=== PATIENT | male | born 1970 | race Caucasian/White ===

== ENCOUNTER 2024-06-05 18:13 | Emergency (ER) | payer OTHER, SELFPAY ==
[2024-06-05 18:36] VITALS: BP 129/85
--- NOTE | 2024-06-05 19:09 | ED.SKININJ ---
HPI-Injury
General
Chief Complaint: Bite
Source: patient
Time Seen by Provider: 06/05/24 18:51
History of Present Illness-Injury
Initial Injury comments:
54-year-old male presenting to the emergency department for evaluation after he was bit on his right hand by family dog. Dog is up-to-date on vaccinations. Patient reports his tetanus vaccine is up-to-date. He is right-hand dominant. No other
injuries were sustained.
Past History
Past History
ED Past Medical History: None
ED Past Surgical History: Orthopedic
Social History
Tobacco: Non-smoker
Alcohol: None
Drug: None
Personal:
Living: with family
Employment: Employed
Review of Systems
Review of Systems
All Other Systems: ROS reviewed and negative except as documented in HPI and ROS
Phy Exam
Physical Exam
Physical Exam:
GENERAL: Alert , in no apparent distress
EYE: conjunctiva clear
Head: Normocephalic atraumatic
NECK: Supple,
ENT: mmm.
LUNGS: no acute respiratory distress
NEUROLOGICAL: Alert and oriented
SKIN: Warm and dry, V-shaped 1-1/2 cm laceration to the right interdigital webbing space between the thumb and the index finger without any active bleeding. Patient allows for full range of motion of all digits and has intact and equal sensation
throughout.
MUSCULOSKELETAL: well perfused.
PSYCH: Normal and appropriate interaction.
Scores
Heart Failure Risk
Heart Failure Risk Score: Not Applicable
Heart Score for Chest Pain Patients
STEMI patient?: Not applicable
Withdrawal Assessment of Alcohol
Withdrawal Assessment Completed?: Not applicable
Course
Orders/Labs/Results
Orders:
Orders
06/05/24 19:10
Amoxicillin 875 mg/Clav 125 mg [Augmentin 875 mg/125 mg] 1 tablet PO NOW STA
Vital Signs
Initial and Last Documented VS:
Initial Vital Signs
Temp Pulse Resp BP Pulse Ox
98.1 F 79 16 129/85 97
06/05/24 18:36 06/05/24 18:36 06/05/24 18:36 06/05/24 18:36 06/05/24 18:36
Last Documented Vital Signs
Temp Pulse Resp BP Pulse Ox
98.1 F 86 19 137/90 97
06/05/24 18:36 06/05/24 19:33 06/05/24 19:33 06/05/24 19:33 06/05/24 18:36
Procedures
Laceration Closure
Right Hand:
Status of Wound: clean
Size of Wound in cm: 1.5
Description of Wound Edges: sharp
Preparation: cleaned with saline and cleaned with Betadine
Revision/Debridement: routine- no revision
Type of Closure: single layer closure
Skin Closure Material: 5-0 nylon
Number of sutures: 1
Additional information:
The point of the V-shaped laceration was reapproximated but wound was left mostly open due to the nature of the injury
MDM/Problems Addressed
MDM/Problems Addressed:
54-year-old male presenting to the ER for laceration sustained by dog bite to the right hand. Wound was loosely reapproximated as above due to the gaping nature of the wound however with the 1 suture the wound was better approximated but still left
open. Wound was irrigated with large quantities of normal saline. Patient started on Augmentin for infection prevention. Advised on wound care as well as return precautions to the ER. Patient is stable for discharge home. Suture removal 10 to
12 days.
*Pulse Oximetry
Patient hypoxic: no
*Critical Care Note
Total Time (30-74mins, 75-104mins- exclusive of procedures): Not Applicable
ED Attending Note
-
Portions of this chart may have been created with voice recognition software.� Occasional wrong word or��sound alike� substitutions may have occurred due to the inherent limitations of voice recognition software.
Discharge Plan
Departure
Patient Disposition: Home (Routine Discharge)
Date of Disposition: 06/05/24
Time of Disposition: 19:09
Patient with high blood pressure during this ER visit?: No
Discharge Problem:
Dog bite, Laceration of right hand
Instructions: Animal Bites (DC)
Prescriptions:
New
amoxicillin-pot clavulanate 875-125 mg tablet
1 tab PO BID 7 Days Qty: 14 0RF
Interventions
Interventions:
*Risk Screen - Suicide Last Done: 06/05/24 19:29
*General Assessment Last Done: 06/05/24 19:29
*Neglect/Abuse Screening Last Done: 06/05/24 19:29
*Nursing Disposition Last Done: 06/05/24 19:33
ED-Skin Assessment Last Done: 06/05/24 19:29
Discharge Date and Time
Discharge Date/Time: 06/05/24 19:33
Print Language: UPPER SORBIAN
[2024-06-05] MEDS: AUGMENTIN 875 MG/125 MG 1 TABLET PO (19:20)
[2024-06-05 19:33] VITALS: BP 137/90
== END 2024-06-05 19:33 | disposition home or self-care (01) ==
LOC: EMR 18:13
PROVIDERS: EMERGENCY PHYSICIAN Emergency Medicine
DX: S61.411A Laceration without foreign body of right hand, initial encounter (principal); W54.0XXA Bitten by dog, initial encounter
CPT/HCPCS: 12001; 99283